=== PATIENT | male | born 1950 | race Caucasian/White ===

== ENCOUNTER → 2016-09-23 | Outpatient (CLI) | payer OTHER, MEDICARE ==
[~2016-09-23] VITALS: Ht 182.9 cm; Wt 99.8 kg
[~2016-09-23] MED LIST: CVS20TAB PO; LISI10TA4 PO; NAPR500T PO; NS 1,000 ML IV SCH; OMEP40CA2 PO; PROPOFOL 200 MG/20 ML VIAL As Ordered ONE
--- NOTE | 2016-09-23 12:17 | ROOR ---
Patient Name: Gigi Grant Procedure Date: 09/23/2016 11:57 AM Date of : 1950 Age: 65 Room: [facility] Gender: Male Note Status: Finalized Procedure: Colonoscopy Indications: Screening for colorectal malignant neoplasm Providers: DO Jose Castillo MD: [facility] EPPS Requesting Provider: Medicines: Propofol per Anesthesia Complications: No immediate complications. Procedure: Pre-Anesthesia Assessment: - Prior to the procedure, a History and Physical was performed, and patient medications and allergies were reviewed. The patient is competent. The risks and benefits of the procedure and the sedation options and risks were discussed with the patient. All questions were answered and informed consent was obtained. Patient identification and proposed procedure were verified by the physician, the nurse, the anesthesiologist and the breeding technician in the endoscopy suite. Mental Status Examination: alert and oriented. Airway Examination: normal oropharyngeal airway and neck mobility. Respiratory Examination: clear to auscultation. CV Examination: normal. Prophylactic Antibiotics: The patient does not require prophylactic antibiotics. Prior Anticoagulants: The patient has taken no previous anticoagulant or antiplatelet agents. ASA Grade Assessment: II - A patient with mild systemic disease. After reviewing the risks and benefits, the patient was deemed in satisfactory condition to undergo the procedure. The anesthesia plan was to use monitored anesthesia care (MAC). Immediately prior to administration of medications, the patient was re-assessed for adequacy to receive sedatives. The heart rate, respiratory rate, oxygen saturations, blood pressure, adequacy of pulmonary ventilation, and response to care were monitored throughout the procedure. The physical status of the patient was re-assessed after the procedure. The Colonoscope was introduced through the anus and advanced to the cecum, identified by appendiceal orifice and ileocecal valve. The colonoscopy was performed without difficulty. The patient tolerated the procedure well. Findings: A few small-mouthed diverticula were found in the sigmoid colon. The perianal exam findings include non-thrombosed internal hemorrhoids and internal hemorrhoids that prolapse with straining, but spontaneously regress to the resting position (Grade II). The exam was otherwise without abnormality on direct and retroflexion views. Impression: - Diverticulosis in the sigmoid colon. - Non-thrombosed internal hemorrhoids and internal hemorrhoids that prolapse with straining, but spontaneously regress to the resting position (Grade II) found on perianal exam. - The examination was otherwise normal on direct and retroflexion views. - No specimens collected. Recommendation: - Patient has a contact number available for emergencies. The signs and symptoms of potential delayed complications were discussed with the patient. Return to normal activities tomorrow. Written discharge instructions were provided to the patient. - Repeat colonoscopy in 5-10 years for screening purposes. - Return to my office PRN. Gautam Simms DO 09/23/2016 12:16:45 PM This report has been signed electronically. Number of Addenda: 0 Note Initiated On: 09/23/2016 11:57 AM Estimated Blood Loss: Estimated blood loss: none.
[2016-09-23 12:40] VITALS: BP 127/62
== END | disposition home or self-care (01) ==
LOC: M OPP 11:08
PROVIDERS: ATTEND Surgery
DX: Z12.11 Encounter for screening for malignant neoplasm of colon (principal); K64.1 Second degree hemorrhoids; K64.8 Other hemorrhoids; K57.30 Diverticulosis of large intestine without perforation or abscess without bleeding; I10 Essential (primary) hypertension; R12 Heartburn; K21.9 Gastro-esophageal reflux disease without esophagitis; R06.83 Snoring; L71.9 Rosacea, unspecified; Z79.899 Other long term (current) drug therapy; Z88.0 Allergy status to penicillin; Z80.1 Family history of malignant neoplasm of trachea, bronchus and lung; Z80.42 Family history of malignant neoplasm of prostate

== ENCOUNTER → 2016-11-11 | Outpatient (CLI) | payer OTHER, MEDICARE ==
[~2016-11-11] MED LIST changes: -NS 1,000 ML IV SCH; -PROPOFOL 200 MG/20 ML VIAL As Ordered ONE
[2016-11-11 19:49] LABS: BLOOD UREA NITROGEN 19 MG/DL (7-18); CREATININE FOR GFR 1.21 MG/DL (0.70-1.30); GLOMERULAR FILTRATION RATE > 60.0 (>49)
== END ==
LOC: M LAB 17:37
PROVIDERS: ATTEND Otolaryngology
DX: H90.42 Sensorineural hearing loss, unilateral, left ear, with unrestricted hearing on the contralateral side (principal)

== ENCOUNTER → 2016-11-11 | Outpatient (CLI) | payer OTHER, MEDICARE | LOC: M RAD 16:55 | PROVIDERS: ATTEND Otolaryngology | DX: H90.5 Unspecified sensorineural hearing loss (principal) ==

== ENCOUNTER → 2016-11-18 | Outpatient (CLI) | payer OTHER, MEDICARE ==
--- NOTE | 2016-11-18 16:57 | REP ---
MRI IACS WITHOUT AND WITH CONTRAST: HISTORY: Sensory neural hearing loss. CONTRAST: ProHance 20 mL. Several punctate areas of increased signal intensity on T2-weighted images are present in the periventricular and subcortical white matter. This represents small vessel ischemic disease. There is no intraparenchymal hemorrhage, infarct, mass or midline shift. There is no abnormal enhancement. The ventricular system and cortical sulci are dilated consistent with minimal volume loss. Cavum septi pellucidi and vergae are present. There is no extracerebral collection. There is no cerebellopontine angle mass. The inner ear structures are normal in appearance. The mastoid air cells and sinuses are clear. IMPRESSION: 1. Minimal small vessel ischemic disease. 2. Minimal volume loss. Signed by Filiberto Jarrett MD 11/18/2016 04:59 P
== END ==
LOC: M RAD 14:50
PROVIDERS: ATTEND Otolaryngology
DX: H90.42 Sensorineural hearing loss, unilateral, left ear, with unrestricted hearing on the contralateral side (principal)

== ENCOUNTER → 2018-05-24 | Outpatient (REF) | payer OTHER, MEDICARE | LOC: M LAB REF 17:20 | DX: C44.319 Basal cell carcinoma of skin of other parts of face (principal) | CPT/HCPCS: 88305 ==

== ENCOUNTER → 2018-06-28 | Outpatient (REF) | payer OTHER, MEDICARE ==
[~2018-06-28] MED LIST changes: +NAPR-50 PO; -NAPR500T PO
== END ==
LOC: M LAB REF 15:28
PROVIDERS: ATTEND Surgery
DX: C44.319 Basal cell carcinoma of skin of other parts of face (principal)

== ENCOUNTER 2018-10-05 06:13 | Day surgery (SDC) | payer OTHER, MEDICARE ==
[~2018-10-05] VITALS: Ht 182.9 cm; Wt 100.7 kg
[~2018-10-05 06:13] MED LIST changes: -CVS20TAB PO; -NAPR-50 PO; +NAPR-837 PO; +OMEP20TA9 PO
[2018-10-05] MEDS ORDERED: LIDOCAINE 2% W/EPIN INJ 20ML **PRES FREE As Ordered ONE (06:39)
[2018-10-05] MEDS ORDERED: TOBRADEX OPHTH OINT 3.5 GM As Ordered ONE (06:39)
[2018-10-05] MEDS ORDERED: POVIDONE-IODINE 5% OPHTH PREP SOL 30ML As Ordered ONE (06:46)
[2018-10-05] MEDS ORDERED: LR 1,000 ML IV ONE (07:00)
[2018-10-05] MEDS ORDERED: LIDOCAINE 3.5 % 1ML OPHTH TOPICAL GEL OU ONE (07:00)
[2018-10-05] MEDS ORDERED: fentaNYL 100 MCG/2 ML INJECTION (J3010) As Ordered ONE (07:26)
[2018-10-05] MEDS ORDERED: MIDAZOLAM INJ 2 MG/2 ML VIAL (J2250) As Ordered ONE (07:26)
[2018-10-05 08:53] VITALS: BP 109/55
--- NOTE | 2018-11-02 07:43 | RO ---
DATE OF PROCEDURE: 10/05/2018 PREOPERATIVE DIAGNOSIS: Skin lesion left lower lid. POSTOPERATIVE DIAGNOSIS: Skin lesion left lower lid, possible diagnosis of basal cell carcinoma. PROCEDURE: Lower lid lesion excision. SURGEON: Dr. Blaine Negro MARKET RESEARCH ANALYST: None. ANESTHESIA: COMPLICATIONS: None. DESCRIPTION OF PROCEDURE: The patient was brought to the operating room and laid in supine position. The eye was prepped and draped in a sterile fashion for ophthalmic surgery, following which, a local anesthetic was given under the lid lesion under the left lid, 2.5 mL was given of 2% lidocaine with 1:100,000 epinephrine. The lesion was then excised with the help of the #15 blade, Jose Armando scissors and electrocautery. Hemostasis was obtained as needed. The lid was marked with interrupted sutures and the specimen was sent for a frozen section. Frozen section of lesion came back as a basal cell carcinoma with three margins. The wound was then closed using interrupted #6-0 nylon sutures. TobraDex ointment was applied and the patient was returned to the recovery room in stable condition.
== END 2018-10-05 09:04 | disposition home or self-care (01) ==
LOC: M SDC 06:13
PROVIDERS: ATTEND Ophthalmology
DX: L82.1 Other seborrheic keratosis (principal); I10 Essential (primary) hypertension; K21.9 Gastro-esophageal reflux disease without esophagitis; L71.9 Rosacea, unspecified; J45.909 Unspecified asthma, uncomplicated; J30.89 Other allergic rhinitis; R06.83 Snoring; Z88.0 Allergy status to penicillin; Z79.899 Other long term (current) drug therapy
CPT/HCPCS: 11441; 88305; J2250; J3010

== ENCOUNTER → 2020-03-17 | Outpatient (REF) | payer OTHER, MEDICARE ==
[~2020-03-17] MED LIST changes: -OMEP40CA2 PO; +OMEP40CA97 PO; +VITA-122
== END ==
LOC: M LAB REF 13:21
PROVIDERS: ATTEND Physician Assistant
DX: L03.113 Cellulitis of right upper limb (principal)

== ENCOUNTER → 2020-04-04 | Outpatient (REF) | payer OTHER, MEDICARE | LOC: M LAB REF 12:24 → M WUC 12:24 | PROVIDERS: ATTEND Physician Assistant | DX: L02.511 Cutaneous abscess of right hand (principal) ==

== ENCOUNTER 2020-04-19 14:09 | Day surgery (SDC) | payer OTHER, MEDICARE ==
[~2020-04-19] VITALS: Ht 182.9 cm; Wt 100.0 kg
[~2020-04-19 14:09] MED LIST changes: +CLINDAMYCIN 900 MG in IV 1 EA IV ONE; +LR 1,000 ML IV ONE
[2020-04-19] MEDS ORDERED: propofoL 200 MG/20 ML VIAL As Ordered ONE (16:15)
[2020-04-19] MEDS ORDERED: LIDOCAINE 2% 100MG/5ML SDV (FOR ANES.) As Ordered ONE (16:15)
[2020-04-19] MEDS ORDERED: ONDANSETRON 4MG/2ML VIAL As Ordered ONE (16:15)
[2020-04-19] MEDS ORDERED: fentaNYL 100 MCG/2 ML INJECTION (J3010) As Ordered ONE (16:15)
[2020-04-19] MEDS ORDERED: MIDAZOLAM INJ 2MG/2ML VIAL (J2250 PER 1MG) As Ordered ONE (16:15)
[2020-04-19] MEDS ORDERED: LIDOCAINE 1% SDV 30ML VIAL As Ordered ONE (16:46)
[2020-04-19] MEDS ORDERED: ePHEDrine SULFATE 25 MG/5 ML(5MG/ML) SYRINGE As Ordered ONE ×2 (17:22→17:23)
[2020-04-19] MEDS ORDERED: KETOROLAC 60MG 2ML VIAL As Ordered ONE (17:25)
[2020-04-19 18:25] VITALS: BP 119/67
--- NOTE | 2020-04-22 11:28 | RO ---
DATE OF OPERATION: 04/19/2020 PREOPERATIVE DIAGNOSIS: Right hand foreign body and abscess in the 2nd webspace. POSTOPERATIVE DIAGNOSIS: Right hand foreign body and abscess in the 2nd webspace. PROCEDURE: Incision and drainage (I and D), right hand abscess in the 2nd webspace and removal of almost 3 cm foreign body. SURGEON: Dr. Mj Cota ANESTHESIA: General with local. ESTIMATED BLOOD LOSS: 5 mL. COMPLICATIONS: None. INDICATIONS: This is a 69-year-old gentleman who several weeks ago was stripping paint on a piece of wood and got a piece of wood in his hand in the 2nd webspace. He has had intermittent problems with drainage. There is an MRI scan that suggested foreign material, and he wished to go ahead with surgical treatment. He has been on and off antibiotics for several weeks. He understood the nature of this, the risks of bleeding, infection, damage to nerves or vessels, persistent pain, recurrent retained foreign material, need for further surgery, among others. PROCEDURE DESCRIPTION: Patient was taken to the operating room and placed in the supine position after general anesthesia was induced. The right upper extremity was prepped and draped in the usual sterile fashion. A time-out was performed. Tourniquet was inflated. I then created an incision starting at the dorsal aspect of the metacarpophalangeal (MP) joint and down along the radial aspect of the 3rd finger, where he had this area of previous drainage. I then carefully bluntly dissected down through the subcutaneous tissue and up into the webspace, and after a couple of minutes of dissection a large foreign body was retrieved that was over an inch in length and was several millimeters in diameter. It appeared to be a dark piece of wood. There was some purulence evident along the tract of this object and fluid collection along the radial aspect of the finger that was purulent, and I cultured this and then carefully spent several minutes dissecting up into the webspace and using a small suction and irrigating to try to locate any other foreign material, and I was unable to locate any. I then copiously irrigated the wound. It appeared to be quite clean. I then closed the skin loosely with 5-0 nylon suture. I left a small opening where the previous purulence had drained, but I did not feel the need to leave a drain as the foreign object was removed and was concerned that a small drain might cause the infection to persist. Sterile dressing was applied. Tourniquet was deflated. He was a taken to the recovery room in stable condition. There were no known complications. I did put some 1% plain lidocaine in. MTDD
== END 2020-04-19 18:26 | disposition home or self-care (01) ==
LOC: M SDC 14:09
PROVIDERS: ATTEND Orthopaedic Surgery
DX: S60.551A Superficial foreign body of right hand, initial encounter (principal); L02.511 Cutaneous abscess of right hand; Y93.D9 Activity, other involving arts and handcrafts; Y92.89 Other specified places as the place of occurrence of the external cause; Y99.9 Unspecified external cause status; I10 Essential (primary) hypertension; K21.9 Gastro-esophageal reflux disease without esophagitis; Z79.899 Other long term (current) drug therapy; Z88.0 Allergy status to penicillin
CPT/HCPCS: 10060; 10120; 87070; 87075; 87205; J1885; J2250; J2405; J3010

== ENCOUNTER → 2020-04-26 | Outpatient (CLI) | payer OTHER, MEDICARE ==
[~2020-04-26] MED LIST changes: -CLINDAMYCIN 900 MG in IV 1 EA IV ONE; -LR 1,000 ML IV ONE
== END ==
LOC: M LABSMTC 09:34
PROVIDERS: ATTEND Orthopaedic Surgery
DX: Z01.812 Encounter for preprocedural laboratory examination (principal); Z20.828 Contact with and (suspected) exposure to other viral communicable diseases

== ENCOUNTER → 2020-09-09 | Outpatient (REF) | payer OTHER, MEDICARE ==
[~2020-09-09] MED LIST changes: +LISI10TA22 PO; -LISI10TA4 PO; -VITA-122; +VITA-168
== END ==
LOC: M LAB REF 13:27
PROVIDERS: ATTEND Orthopaedic Surgery
DX: M25.541 Pain in joints of right hand (principal)

== ENCOUNTER → 2020-12-13 | Outpatient (CLI) | payer OTHER, MEDICARE ==
[~2020-12-13] MED LIST changes: +OMEP20TA2 PO; -OMEP20TA9 PO; +OMEP40CA4 PO; -OMEP40CA97 PO
--- NOTE | 2020-12-13 15:41 | REP ---
INDICATION: CONTUSION. COMPARISON: None TECHNIQUE: For the views of the left ribs with frontal view of the chest FINDINGS: The frontal view the chest shows the lung savage to be clear, the cardiomediastinal silhouette to be within normal limits, and the osseous structures to be within normal limits. Four views of the left ribs show evidence of a fracture involving the anterior aspect of the 10th rib no other definite rib fractures are identified. IMPRESSION: Negative rib series. Left 10th rib fracture as described above. This was not appreciated on the frontal view the chest. <Electronically signed by Armando Silva > 12/13/20 [id number]
== END ==
LOC: M WUC 13:37
PROVIDERS: ATTEND Physician Assistant
DX: S20.222A Contusion of left back wall of thorax, initial encounter (principal); X58.XXXA Exposure to other specified factors, initial encounter; Y92.89 Other specified places as the place of occurrence of the external cause; Y93.9 Activity, unspecified; Y99.9 Unspecified external cause status

== ENCOUNTER → 2023-01-20 | Outpatient (REF) | payer OTHER, MEDICARE | LOC: M SFHCDERM 17:49 | PROVIDERS: ATTEND Dermatology | DX: C44.329 Squamous cell carcinoma of skin of other parts of face (principal); L57.0 Actinic keratosis; L57.9 Skin changes due to chronic exposure to nonionizing radiation, unspecified ==

== ENCOUNTER → 2025-05-23 | Outpatient (CLI) | payer MEDICARE, OTHER ==
[~2025-05-23] MED LIST changes: +OMEP-611 PO; -OMEP20TA2 PO
== END ==
LOC: M RAD 11:30
DX: M79.661 Pain in right lower leg (principal); M25.571 Pain in right ankle and joints of right foot

== ENCOUNTER → 2025-05-23 | Outpatient (CLI) | payer MEDICARE, OTHER | LOC: M WUC 09:59 | DX: M25.561 Pain in right knee (principal); M79.661 Pain in right lower leg; M25.271 Flail joint, right ankle and foot ==